=== PATIENT | female | born 1960 | race Caucasian/White ===

== ENCOUNTER 2019-12-21 17:23 | Emergency (ER) | payer MEDICARE, MEDICAID, SELFPAY ==
--- NOTE | ~2019-12-21 | CT_ITS ---
EXAMINATION: CT abdomen pelvis wo con DATE: 12/21/2019 18:08 INDICATION: Hematuria. Back pain. TECHNIQUE: Computed tomography (CT) of the abdomen and pelvis was performed without intravenous contr ast. The dose-length product was 1363.67 mGy-cm. Automated exposure control and iterative reconstruct ion technique were employed. COMPARISON: None. FINDINGS: Lung bases are unremarkable. Heart size normal. No significant pleural or pericardial effus ion. No significant vascular abnormality. No lymphadenopathy. The liver, spleen, pancreas, adrenal glands and kidneys are unremarkable. No ureteral stones or hydronephrosis. Bowel pattern is nonobstructive. Colonic diverticulosis without evidence for diverticulitis. There is spinal fusion at L4-5. No acute osseous abnormality. No osteol ytic or osteoblastic lesions. No abnormal pelvic masses or fluid collections. Small fat-containing um bilical hernia. No lymphadenopathy. IMPRESSION: 1. No acute abdominal abnormality. Reviewed, dictated and finalized at location A.
[2019-12-21 17:33] VITALS: BP 170/78; PULSE 100; RESP 18; O2SAT 98
--- NOTE | 2019-12-21 17:54 | ED.ABDPAIN ---
HPI - Abdominal Pain General Chief Complaint: Urogenital-Female <Cindy Benoit PA-C - Last Filed: 12/21/19 19:16> Stated Complaint: hematuria <DYAN Kruse Last Filed: 12/21/19 19:16> Time Seen by Provider: 12/21/19 17:32 <Cindy Benoit PA-C - Last Filed: 12/21/19 19:16> Source: patient <DYAN Kruse Last Filed: 12/21/19 19:16> Mode of arrival: ambulatory <DYAN Kruse Last Filed: 12/21/19 19:16> Limitations: no limitations <Cindy Benoit PA-C - Last Filed: 12/21/19 19:16> History of Present Illness HPI narrative: This is a 59 year old female that presents to the ER for hematuria x 2 days. Reports she sees blood when she wipes and also when she urinates. Also reports urinary frequency. Reports she was seen for this two days ago and told to continue her Keflex prescribed for a sinus infection. Reports she called a clinic yesterday who changed her antibiotic to Bactrim. Also reports flank pain. Denies fever, abdominal pain, nausea, vomiting, or dysuria. <Cindy Benoit PA-C - Last Filed: 12/21/19 19:16> Related Data Home Medications: Home Medications Medication Instructions Recorded Confirmed baclofen 10 mg PO TID 12/21/19 celecoxib 200 mg PO DAILY 12/21/19 duloxetine 60 mg PO BID 12/21/19 hydrocodone-acetaminophen [[place]] PRN 12/21/19 hydroxychloroquine 200 mg PO BID 12/21/19 levetiracetam 750 mg PO BID 12/21/19 levothyroxine 50 mcg PO DAILY 12/21/19 methotrexate sodium 2.5 mg PO WEEKLY 12/21/19 metoprolol succinate 50 mg PO DAILY 12/21/19 prednisone 20 mg PO DAILY 12/21/19 rabeprazole 20 mg PO BID PRN 12/21/19 sulfamethoxazole-trimethoprim 1 tablet PO Q12H 12/21/19 [Bactrim DS] tamsulosin 0.4 mg PO DAILY 12/21/19 <Cindy Benoit PA-C - Last Filed: 12/21/19 19:16> Allergies/Adverse Reactions: Allergies Allergy/AdvReac Type Severity Reaction Status Date / Time butorphanol [From Stadol] AdvReac Unknown Other Verified 12/21/19 17:45 lithium AdvReac Unknown Other Verified 12/21/19 17:46 morphine AdvReac Unknown Other Verified 12/21/19 17:44 nalbuphine [From Nubain] AdvReac Unknown Other Verified 12/21/19 17:45 <Cindy Benoit PA-C - Last Filed: 12/21/19 19:16> Review of Systems Review of Systems: Narrative: CONSTITUTIONAL: Denies fever GASTROINTESTINAL: Denies abdominal pain, nausea, vomiting, or diarrhea. GENITOURINARY: Reports hematuria. Denies dysuria MUSCULOSKELETAL: Reports back pain <Cindy Benoit PA-C - Last Filed: 12/21/19 19:16> All systems reviewed & are unremarkable except as noted in HPI and below <Cindy Benoit PA-C - Last Filed: 12/21/19 19:16> PMFSH Past Medical History Medical History: Medical History (Updated 12/21/19 @ 18:58 by Cindy Benoit PA-C) History of fibromyalgia History of hypothyroidism History of restless legs syndrome <Cindy Benoit PA-C - Last Filed: 12/21/19 19:16> Social History Social History: Social History (Updated 12/21/19 @ 18:10 by Cindy Benoit PA-C) Smoking status: Never smoker Gender identity (if verbalized by the patient): Female <Cindy Benoit PA-C - Last Filed: 12/21/19 19:16> Exam Narrative: Exam Narrative: GENERAL: Well-appearing, well-nourished, and in no acute distress. HEAD: Normocephalic, atraumatic. EYES: EOMI. CHEST: Clear to auscultation. No respiratory distress. No wheezes rales or rhonchi HEART: Regular rate and rhythm. No murmur heard. Normal peripheral pulses. ABDOMEN: Soft, nontender, nondistended, normal active bowel sounds. No CVA tenderness EXTREMITIES: Normal range of motion. No edema. SKIN: Warm, dry, no rash. NEURO: No focal deficits. Alert and oriented x3. PSYCH: Normal mood and affect PELVIC: Small amount of dark red blood in the vaginal vault <Cindy Benoit PA-C - Last Filed: 12/21/19 19:16> Course Vital Signs Vital signs: Vital Signs Pulse Rate 100 12/21/19 17:3
[2019-12-21 17:57] LABS: Basophils Percent Auto 0.3 % (0.2-1.2); Eosinophils Percent Auto 0.1 % (0-4.4); Hematocrit 36.7 % (37.0-47.0); Hemoglobin 11.6 g/dL (12.0-15.0); Immature Granulocyte Absolute 0.02 K/mm3 (0.00-0.031); Immature Granulocyte Percent A 0.3 % (0-0.5); Lymphocytes Absolute Auto 0.69 K/mm3 (0.9-3.2); Lymphocytes Percent Auto 10.1 % (18.3-44.2); Mean Corpuscular HGB Conc 31.6 g/dl (32-36); Mean Corpuscular Hemoglobin 27.7 pg (26-34); Mean Corpuscular Volume 87.6 fl (80-100); Mean Platelet Volume 9.7 fl (7.4-10.4); Monocytes Absolute Auto 0.2 K/mm3 (0.1-0.6); Monocytes Percent Auto 2.8 % (2.6-8.5); Neutrophils Absolute Auto 5.9 K/mm3 (1.3-6.7); Neutrophils Percent Auto 86.4 % (45.5-73.1); Platelet Count Result 274 k/mm3 (150-375); Red Blood Count 4.19 M/mm3 (4.2-5.4); Red Cell Distribution Width 16.1 % (11.5-14.5); White Blood Count 6.9 K/mm3 (4.5-10.0)
[2019-12-21 18:08] LABS: Blood Urea Nitrogen 12 mg/dL (7-17); Calcium 9.1 mg/dL (8.4-10.2); Carbon Dioxide 24 mmol/L (22-30); Chloride 106 mmol/L (98-107); Estimated CRCL calculation 77 ml/min; Estimated Glomerular Filt Rate > 60; Glucose 137 mg/dL (65-105); Potassium 4.2 mmol/L (3.4-5.0); Sodium 138 mmol/L (137-145)
[2019-12-21 18:16] LABS: Lactic Acid Reflex 1.3 mmol/L (0.7-2.1)
[2019-12-21 18:47] LABS: Add Urine Microscopic? YES; Appearance Urine Clear (Clear); Bilirubin Urine Negative (Negative); Blood Urine 3+ (Negative); Color Urine Colorless (Yellow); Glucose Urine UA Negative (Negative); Ketones Urine Negative (Negative); Leukocyte Esterase Ur 1+ LEU/UL (Negative); Nitrate Urine Negative (Negative); Protein Urine Negative (Negative); Specific Grav Ur 1.006 (1.001-1.035); Squamous Epithelial Cell Urine Many /hpf (Few); Urobilinogen Urine Negative mg/dL (<2.0)
[2019-12-21] MEDS: FLUCONAZOLE 150 MG TABLET PO (19:31)
== END 2019-12-21 19:35 | disposition home or self-care (01) ==
PROVIDERS: Physician Assistant; Emergency Provider Emergency Medicine
DX: N95.0 Postmenopausal bleeding (principal); N30.00 Acute cystitis without hematuria; M79.7 Fibromyalgia; E03.9 Hypothyroidism, unspecified; G25.81 Restless legs syndrome
CPT/HCPCS: 36415; 74176; 80048; 81001; 83605; 85025; 87070; 87491; 87591; 87808; 99284; A9270